=== PATIENT | female | born 1990 | race Caucasian/White ===

== ENCOUNTER 2017-08-30 10:26 | Emergency (ER) | payer OTHER ==
[~2017-08-30] VITALS: Ht 162.6 cm; Wt 88.5 kg
[~2017-08-30 10:26] MED LIST: VITAMIN D250000 UNIT PO
[2017-08-30 12:09] VITALS: BP 124/72
[2017-08-30 12:20] LABS: ABSOLUTE BASOPHIL COUNT 0.1 /CUMM (0.0-0.2); ABSOLUTE EOSINOPHIL COUNT 0.2 /CUMM (0.0-0.7); ABSOLUTE GRANULOCYTE CT 10.1 /CUMM (1.4-6.5); ABSOLUTE LYMPH COUNT 2.7 /CUMM (1.2-3.4); ABSOLUTE MONOCYTE COUNT 0.8 /CUMM (0.10-0.60); BASOPHIL % 0.6 % (0.0-2.0); EOSINOPHIL % 1.7 % (0-5); GRANULOCYTE % 72.6 % (42.2-75.2); HEMATOCRIT 41.2 % (37-47); MEAN CORPUSCULAR HGB 27.9 PG (27.0-31.0); MEAN CORPUSCULAR HGB CONC 33.5 G/DL (33.0-37.0); MEAN PLATELET VOLUME 9.3 FL (7.4-10.4); PLATELET COUNT 360 /CUMM (130-400); RED BLOOD CELL CT 4.96 /CUMM (4.20-5.40); WHITE BLOOD CELL COUNT 13.9 /CUMM (4.8-10.8)
--- NOTE | 2017-08-30 12:35 | ED GI/GU/ABDOMINAL COMPLAINT ---
History of Present Illness General Chief Complaint: General Adult Stated Complaint: ?UTI, LOWER BACK PAIN,"LOW GRADE FEVER" Source: patient Exam Limitations: no limitations Vital Signs & Intake/Output Vital Signs & Intake/Output Vital Signs Date Time Temp Pulse Resp B/P B/P Pulse O2 O2 Flow FiO2 Mean Ox Delivery Rate 08/30 1209 100.2 72 17 124/72 98 Room Air 08/30 1050 100.1 75 16 120/77 97 Room Air Allergies Coded Allergies: shellfish derived (TIGHT THROAT 01/16/17) Reconcile Medications Ciprofloxacin HCl (Cipro) 500 MG TABLET 1 TAB PO BID ABX (Reported) Ergocalciferol (Vitamin D2) (Vitamin D2) 50,000 UNIT CAPSULE 1 CAP PO QW VITAMIN D DEFICIENCY (Reported) Lactobacillus Acidophilus (Probiotic) (Unknown Strength) CAPSULE (Unknown Dose ) PO DAILY PROBIOTIC (Reported) Sulfamethoxazole/Trimethoprim (Bactrim Ds Tablet) 800 MG-160 MG TABLET 1 TAB PO BID UTI Triage Note: PT STATES THAT SHE STILL HAS UTI AND SYMPTOMS AND IT WILL NOT GET BETTER.. NON OF THE MEDICATIONS THAT SHE HAS TAKEN SEEM TO HELP. PT STATES THAT THE SYMPTOMS ARE WORSE..PT STATES IT FEELS LIKE A VICE AROUND MY BLADDER. Triage Nurses Notes Reviewed? yes LMP (ages 10-50): unknown ? N Is pt currently ? No Onset: Gradual Duration: week(s): (2), constant, continues in ED, getting worse Timing: single episode today Quality/Severity: aching, burning, cramping, severe, stabbing Severity Numbers: 9 Location: suprapubic Radiation: back, flank Activities at Onset: none Prior Abdominal Problems: none Past Sexual History: Unobtainable at this time No Modifying Factors: none Modifying Factors: Worsens With: palpation. Associated Symptoms: abdominal pain, lower back pain HPI: 26 YEAR old female with no past medical history presents for evaluation of suprapubic pain, frequency, urgency, dysuria and low back pain. Patient states that symptoms started 2 weeks ago. She was seen at an urgent care on 2 different occasions initially she was treated with Macrobid and then Cipro. Both of these antibiotics did not help. She's also been taking [id number] AZO without any improvement. She reports continued suprapubic pressure feels like her bladder is in a vice and now has low back pain and fever. The pain is located mostly on the right side of her lower back radiates into the right flank and right lower quadrant. No recent surgeries. She reports nausea but no vomiting no vaginal discharge or bleeding no chest pain or shortness of breath. She has been eating and drinking normally. No trauma no numbness or tingling. No IV drug use. Past History Travel History Traveled to [place] past 21 day No Medical History Any Pertinent Medical History? see below for history Surgical History Surgical History: unobtainable Psychosocial History What is your primary language Iraqi Tobacco Use: Current Daily Use Daily Tobacco Use Amount/Type: => 5 Cigarettes daily Family History Hx Contributory? No Review of Systems Review of Systems Constitutional: Reports: no symptoms. EENTM: Reports: no symptoms. Respiratory: Reports: no symptoms. Cardiovascular: Reports: no symptoms. GI: Reports: see HPI, abdominal pain, nausea. Genitourinary: Reports: see HPI, dysuria, frequency, pain, urgency. Musculoskeletal: Reports: no symptoms. Skin: Reports: no symptoms. Neurological/Psychological: Reports: no symptoms. Hematologic/Endocrine: Reports: no symptoms. Immunologic/Allergic: Reports: no symptoms. All Other Systems: Reviewed and Negative Physical Exam Physical Exam General Appearance: well developed/nourished, no apparent distress, alert, awake Head: atraumatic, normal appearance Eyes: Bilateral: normal appearance, PERRL, EOMI. Ears, Nose, Throat, Mouth: hearing grossly normal, moist mucous membrane Neck: normal inspection, supple, full range of motion Respiratory: normal breath sounds, chest non-tender, no respiratory distress, lungs clear Cardiovascular: regular rate/rhythm, normal peripheral pulses Peripheral Pulses: 2+ radial (R), 2+ radial (L) Gastrointestinal: normal bowel sounds, soft, no organomegaly, tenderness ( SUPRAPUBIC, RT FLANK, RLQ) Back: normal inspection, normal range of motion, THERE IS BILATERAL LUMBAR PARASPINOUS MUSCLE TENDERNESS WORSE ON THE RIGHT SIDE NO MIDLINE TENDERNESS NO SUPPLE ALSO DEFORMITIES NO BRUISING SWELLING OR ABRASIONS NO RASHES Extremities: normal range of motion Neurologic/Psych: no motor/sensory deficits, awake, alert, oriented x 3, normal gait Skin: intact, normal color, warm/dry Core Measures ACS in differential dx? No Sepsis Present: No Sepsis Focused Exam Completed? No Progress Differential Diagnosis: appendicitis, biliary colic, bowel obstruction, cholecystitis, diverticulitis Plan of Care: Orders Procedure Date/time Status COMPREHENSIVE METABOLIC PANEL 08/30 1144 Complete CBC WITHOUT DIFFERENTIAL 08/30 1144 Complete URINE 08/30 1035 Complete URINALYSIS 08/30 1035 Complete Laboratory Tests 08/30/17 1203: Anion Gap 11, Estimated GFR > 60, BUN/Creatinine Ratio 20.0, Glucose 79, Calcium 9.7, Total Bilirubin 0.5, AST 21, ALT 33, Alkaline Phosphatase 55, Total Protein 7.4, Albumin 4.3, Globulin 3.1, Albumin/Globulin Ratio 1.4, CBC w Diff NO MAN DIFF REQ, RBC 4.96, MCV 83.0, MCH 27.9, MCHC 33.5, RDW 15.0 H, MPV 9.3, Gran % 72.6, Lymphocytes % 19.7 L, Monocytes % 5.4, Eosinophils % 1.7, Basophils % 0.6 , Absolute Granulocytes 10.1 H, Absolute Lymphocytes 2.7, Absolute Monocytes 0.8 H, Absolute Eosinophils 0.2, Absolute Basophils 0.1 08/30/17 1100: Urine Color YEL, Urine Clarity CLEAR, Urine pH 6.0, Ur Specific Preston >= 1.030 , Urine Protein NEG, Urine Ketones NEG, Urine Nitrite NEG, Urine Bilirubin NEG, Urine Urobilinogen 0.2, Ur Leukocyte Esterase NEG, Ur Microscopic EXAM NOT REQUIRED, Urine Hemoglobin NEG, Urine Glucose NEG, Urine Test NEGATIVE Patient seen and evaluated. On initial evaluation she has a low-grade temp. She reports urinary frequency urgency dysuria and superpubic abdominal pain. She took Macrobid for a week and has been on Cipro for 5 days without any improvement. She also used Azo without improvement. Patient was medicated with ibuprofen here. Urinalysis here is clean however patient is taking Cipro. She states that a culture was never sent from the urgent care. Basic blood work was obtained and shows a mildly elevated white blood cell count of 14,000. A CT scan of the abdomen and pelvis was obtained and does not show any abnormal findings. Patient is afebrile on reevaluation. She reports mild improvement after ibuprofen. Patient will be given a shot of a gram of ceftriaxone IM and change to Bactrim. No other signs of infection. No cellulitis coughing. No vaginal discharge. No IV drug use. No chest pain or shortness of breath. Even though patient does not show signs of infection in the urine it could be because she is taking antibiotic currently that sterilized the urine. Patient will also be given referral to a urologist. Advised to the restaurant plenty of fluids and Tylenol and ibuprofen. Discussed return precautions in detail. Return with any concerns. Diagnostic Imaging: Viewed by Me: CT Scan. Discussed w/RAD: CT Scan. Radiology Impression: PATIENT: NORMA TAMAYO PRESENT AGE: 26 PATIENT ACCOUNT NO: [id number] : 90 LOCATION: [facility] ORDERING PHYSICIAN: Slim BARBOZA SERVICE DATE: 08/30/17 EXAM TYPE: CAT - CT ABD & PELVIS W/O IV CONTRAS EXAMINATION: CT ABDOMEN AND PELVIS WITHOUT CONTRAST CLINICAL INFORMATION: Pain right flank and lower back, radiating to right lower quadrant and suprapubic area. COMPARISON: None TECHNIQUE: Multidetector volumetric imaging was performed from the superior aspect of the liver through the pubic symphysis. Sagittal and coronal reformatted images were obtained on the technologist's workstation. No oral or intravenous contrast. DLP: 521 mGy-cm FINDINGS: LUNG BASES: Linear scar versus disc atelectasis left posterior lateral base. No infiltrate or effusion. LIVER, GALLBLADDER, AND BILIARY TREE: Liver is mildly enlarged measuring 20.6 cm in length. Liver surface is smooth. There is normal parenchymal attenuation and no visible parenchymal lesion or intra or hepatic biliary ductal dilatation. The gallbladder is unremarkable with no evidence of radiopaque gallstones, gallbladder wall thickening, or obvious pericholecystic inflammatory changes. PANCREAS: Unremarkable. SPLEEN: Normal in size and homogeneous. Subcentimeter splenule between left kidney and spleen left upper quadrant. ADRENAL GLANDS: Unremarkable. KIDNEYS AND URETERS: The kidneys are normal in size, shape, and attenuation. No hydronephrosis, hydroureter, or calculi seen. No perinephric stranding. BLADDER: Unremarkable. GASTROINTESTINAL TRACT: There is no bowel obstruction or inflammatory changes in the bowel or mesentery. The appendix is normal. There is no ascites or fluid collection. ABDOMINAL WALL: No significant hernia is appreciated. LYMPH NODES: There is some scattered mesenteric nodes of normal caliber left mid abdomen and multiple small bilateral inguinal nodes, largest 1 cm short axis on right VASCULAR: Unremarkable. PELVIC VISCERA: Unremarkable. OSSEOUS STRUCTURES: Unremarkable. IMPRESSION: 1. Borderline/mild hepatomegaly. Spleen within normal size. 2. No urinary tract calculi, hydronephrosis, or perinephric stranding. 3. No inflammatory changes abdomen or pelvis. Normal appendix. 4. No adnexal mass or ascites. DICTATED BY: Trino Curry MD DATE/TIME DICTATED:08/30/171404 DIRECTOR GLOBAL INTELLIGENCE:JUANA DATE/TIME TRANSCRIBED:08/30/171404 CONFIDENTIAL, DO NOT COPY WITHOUT APPROPRIATE AUTHORIZATION. Initial ED EKG: none Departure Departure Disposition: HOME OR SELF CARE Condition: Stable Clinical Impression Primary Impression: UTI (urinary tract infection) Qualifiers: Urinary tract infection type: acute cystitis Hematuria presence: without hematuria Qualified Code: N30.00 - Acute cystitis without hematuria Referrals: Bessy Khan MD (PCP/Family) Additional Instructions: Take Bactrim as directed for the full course. Stop taking Cipro. Rest and drink plenty of fluids. Use ibuprofen 800 mg every 8 hours with food as needed for pain or fevers. He can also use Tylenol. Make a follow-up appointment with a urologist (DR AVALOS) and primary care doctor as soon as possible. Monitor symptoms closely. If you have persistent high fever worsening pain unable tolerate fluids and other concerns return immediately. Departure Forms: Customer Survey General Discharge Information Prescriptions: Current Visit Scripts Sulfamethoxazole/Trimethoprim (Bactrim Ds Tablet) 1 TAB PO BID #20 TAB
[2017-08-30] MEDS ORDERED: CIPRO500 M1 PO (12:41)
[2017-08-30] MEDS ORDERED: PROBIOTIC1 EACH PO (12:42)
--- NOTE | 2017-08-30 14:22 | CT SCAN REPORT ---
EXAMINATION: CT ABDOMEN AND PELVIS WITHOUT CONTRAST CLINICAL INFORMATION: Pain right flank and lower back, radiating to right lower quadrant and suprapubic area. COMPARISON: None TECHNIQUE: Multidetector volumetric imaging was performed from the superior aspect of the liver through the pubic symphysis. Sagittal and coronal reformatted images were obtained on the technologist's workstation. No oral or intravenous contrast. DLP: 521 mGy-cm FINDINGS: LUNG BASES: Linear scar versus disc atelectasis left posterior lateral base. No infiltrate or effusion. LIVER, GALLBLADDER, AND BILIARY TREE: Liver is mildly enlarged measuring 20.6 cm in length. Liver surface is smooth. There is normal parenchymal attenuation and no visible parenchymal lesion or intra or hepatic biliary ductal dilatation. The gallbladder is unremarkable with no evidence of radiopaque gallstones, gallbladder wall thickening, or obvious pericholecystic inflammatory changes. PANCREAS: Unremarkable. SPLEEN: Normal in size and homogeneous. Subcentimeter splenule between left kidney and spleen left upper quadrant. ADRENAL GLANDS: Unremarkable. KIDNEYS AND URETERS: The kidneys are normal in size, shape, and attenuation. No hydronephrosis, hydroureter, or calculi seen. No perinephric stranding. BLADDER: Unremarkable. GASTROINTESTINAL TRACT: There is no bowel obstruction or inflammatory changes in the bowel or mesentery. The appendix is normal. There is no ascites or fluid collection. ABDOMINAL WALL: No significant hernia is appreciated. LYMPH NODES: There is some scattered mesenteric nodes of normal caliber left mid abdomen and multiple small bilateral inguinal nodes, largest 1 cm short axis on right VASCULAR: Unremarkable. PELVIC VISCERA: Unremarkable. OSSEOUS STRUCTURES: Unremarkable. IMPRESSION: 1. Borderline/mild hepatomegaly. Spleen within normal size. 2. No urinary tract calculi, hydronephrosis, or perinephric stranding. 3. No inflammatory changes abdomen or pelvis. Normal appendix. 4. No adnexal mass or ascites.
[2017-08-30] MEDS ORDERED: BACTRIM DS TAB1 EACH PO (14:41)
== END 2017-08-30 14:57 ==
LOC: ERH 10:26
PROVIDERS: Physician Assistant Medical
DX: N39.0 Urinary tract infection, site not specified (principal)
CPT/HCPCS: 74176; 81003; 81025; 96372; J0696